=== PATIENT | male | born 1940 | race Caucasian/White ===

== ENCOUNTER → 2019-05-08 | Outpatient (CLI) | payer MEDICARE ==
[~2019-05-08] MED LIST: REGADENOSON INJ 0.4 MG/5 ML DISP.SYRIN IV ONE
--- NOTE | 2019-05-08 14:26 | DRAGON STRESS TEST REPORT ---
Procedure performed: Rest/stress single isotope Cardiolite SPECT imaging using IV Lexiscan stress and gated SPECT imaging. Indication preop cardiac evaluation. This 78-year-old male patient is for preop kidney resection surgery. He had bypass surgery x3 in 1995. Cardiac risk factors includes diabetes, hypertension, hypercholesterolemia, and family history. Current symptomatology includes no chest pains. Report: Patient received IV Lexiscan 0.4 mg infused over 10 seconds and flushed. Resting heart rate was 62 bpm and increased to 66 bpm at end infusion. Resting blood pressure was 150/69 and decreased to 135/53 at an infusion. Patient has symptoms of shortness of breath and flushing and pre-existing dizziness but there was no chest pains. In any infusion his symptoms improved. The resting twelve-lead EKG showed ventricular pacing, 65 bpm, nondiagnostic. At an infusion, no ST-T changes were seen. Myocardial perfusion imaging was performed at rest 60 minutes following the injection of 14.82 mCi of Cardiolite. 10 seconds after the IV Lexiscan injection, patient was injected with 43.5 mCi of Cardiolite and flushed. Gated post stress tomographic imaging was performed 60 minutes after stress. Findings: The overall quality of the study is fair. The left ventricular cavity is noted to be enlarged on both the rest and stress studies. There is evidence of abnormal transient ischemic dilatation of the left ventricle, the TID ratio was 1.27. SPECT images showed no evidence of IV Lexiscan induced reversible ischemia, but there was a large area of fixed perfusion defect in the entire inferior wall and basal inferoseptal wall. Gated SPECT images showed reduced motion contraction in the apex, apical anteroseptal wall, and no motion contraction in the entire inferior wall. The left ventricular ejection fraction was calculated at 39%. Impression: Myocardial perfusion imaging is abnormal. There is no reversible ischemia but there is a large area of severe fixed perfusion defect in the entire inferior wall and basal inferoseptal wall, with no motion contraction in these areas indicating infarct. Overall left ventricular systolic function was mildly impaired with post-rest EF calculated at 39%. Compared to prior study, no new changes. MTDD
== END ==
LOC: RAD 07:05
PROVIDERS: ATTEND Internal Medicine Cardiovascular Disease
DX: I25.10 Atherosclerotic heart disease of native coronary artery without angina pectoris (principal)
CPT/HCPCS: 93017; 78452; A9500; J2785; Q9969